=== PATIENT | female | born 1990 | race African-American/Black ===

== ENCOUNTER → 2025-01-06 | Outpatient (CLI) | payer OTHER ==
[~2025-01-06] MED LIST: OXYC1CAP2 PO
[2025-01-06 18:18] LABS: BASO # 0.1 10^3/uL (0.0-0.2); BASO % 0.6 % (0.0-1.0); EOS # 0.3 10^3/uL (0.0-0.5); EOS % 2.5 % (0.0-3.0); LYMPH # 2.6 10^3/uL (1.5-5.0); LYMPH % 24.3 % (24.0-44.0); MONO # 0.7 10^3/uL (0.0-0.8); MONO % 6.5 % (2.0-8.0); NEUTROPHILS # 6.9 10^3/uL (1.5-8.5); NEUTROPHILS % 65.9 % (36.0-66.0); PLATELET COUNT, AUTOMATED 410 10^3/uL (150-450)
[2025-01-06 18:21] LABS: CALCIUM LEVEL 9.1 MG/DL (8.5-10.1); CARBON DIOXIDE LEVEL 27 MMOL/L (20-31); CHLORIDE LEVEL 107 MMOL/L (98-107); CREATININE FOR GFR 0.97 MG/DL (0.55-1.30); GLOMERULAR FILTRATION RATE 79.6 (>60); HCG, SERUM QUALITATIVE NEGATIVE (NEGATIVE); POTASSIUM SERUM 4.6 MMOL/L (3.5-5.1); SODIUM LEVEL 145 MMOL/L (136-145)
== END ==
LOC: M PLALAB 14:52
PROVIDERS: ATTEND Surgery
DX: N61.1 Abscess of the breast and nipple (principal)

== ENCOUNTER 2025-01-08 09:01 | Day surgery (SDC) | payer OTHER ==
[~2025-01-08] VITALS: Ht 157.5 cm; Wt 84.8 kg
[2025-01-08] MEDS: LR 1,000 ML IV SCH (09:50)
[2025-01-08] MEDS ORDERED: ONDANSETRON 4MG 2ML VIAL As Ordered ONE (10:29)
[2025-01-08] MEDS ORDERED: LIDOCAINE 2% 100 MG/5 ML SDV (FOR ANES.) As Ordered ONE (10:29)
[2025-01-08] MEDS ORDERED: dexAMETHasone 4 MG/ML 1 ML VIAL As Ordered ONE (10:29)
[2025-01-08] MEDS ORDERED: MIDAZOLAM INJ 2 MG/2 ML VIAL As Ordered ONE (10:32)
[2025-01-08] MEDS: ceFAZolin SOD 2 GM IV ONCE IV ONE (11:53)
[2025-01-08] MEDS ORDERED: ACETAMINOPHEN 1000MG/100ML IV BAG As Ordered ONE (11:59)
[2025-01-08] MEDS ORDERED: GLYCOPYRROLATE INJ 0.2 MG/ML 2 ML VIAL As Ordered ONE (12:21)
[2025-01-08] MEDS ORDERED: OXYC1CAP2 PO (13:15)
[2025-01-08] MEDS: HYDROMORPHONE HCL 0.5 MG/0.5 ML SYRINGE IV PRN (13:36)
[2025-01-08] MEDS: traMADol 50 MG TAB PO ONE (14:00)
[2025-01-08 14:40] VITALS: BP 167/98; TEMP 97.7; O2SAT 100
== END 2025-01-08 15:28 | disposition home or self-care (01) ==
LOC: M SDC 09:01
PROVIDERS: ATTEND Surgery
DX: N61.1 Abscess of the breast and nipple (principal); Z88.0 Allergy status to penicillin
CPT/HCPCS: 10061; 87070; 87075; 87205; 88305; J0131; J0690; J1100; J1171; J1596; J2250; J2405; J3010

== ENCOUNTER → 2025-01-26 | Outpatient (CLI) | payer OTHER ==
[2025-01-26 18:36] LABS: PLATELET COUNT, AUTOMATED 450 10^3/uL (150-450)
[2025-01-26 19:12] LABS: HCG, SERUM QUALITATIVE NEGATIVE (NEGATIVE)
== END ==
LOC: M PLALAB 12:38
PROVIDERS: ATTEND Surgery
DX: Z01.812 Encounter for preprocedural laboratory examination (principal)

== ENCOUNTER 2025-01-29 11:41 | Day surgery (SDC) | payer OTHER ==
[~2025-01-29] VITALS: Ht 157.5 cm; Wt 83.6 kg
[2025-01-29] MEDS: LR 1,000 ML IV SCH (12:25)
[2025-01-29] MEDS ORDERED: LIDOCAINE 2% 100 MG/5 ML SDV (FOR ANES.) As Ordered ONE (12:58)
[2025-01-29] MEDS ORDERED: dexAMETHasone 4 MG/ML 1 ML VIAL As Ordered ONE (12:58)
[2025-01-29] MEDS ORDERED: ONDANSETRON 4MG 2ML VIAL As Ordered ONE (12:58)
[2025-01-29] MEDS ORDERED: MIDAZOLAM INJ 2 MG/2 ML VIAL As Ordered ONE (12:58)
[2025-01-29] MEDS: ceFAZolin SOD 2 GM IV ONCE IV ONE (14:40)
[2025-01-29] MEDS ORDERED: KETOROLAC 30 MG/ML 1 ML VIAL As Ordered ONE (15:01)
[2025-01-29] MEDS ORDERED: ACETAMINOPHEN 1000MG/100ML IV BAG As Ordered ONE (15:05)
[2025-01-29] MEDS ORDERED: GLYCOPYRROLATE INJ 0.2 MG/ML 2 ML VIAL As Ordered ONE (15:10)
[2025-01-29] MEDS: HYDROMORPHONE HCL 0.5 MG/0.5 ML SYRINGE IV PRN (15:53)
[2025-01-29] MEDS: ONDANSETRON 4MG 2ML VIAL IV PRN (15:53)
[2025-01-29 17:35] VITALS: BP 145/86; TEMP 97.7; O2SAT 100
== END 2025-01-29 17:41 | disposition home or self-care (01) ==
LOC: M SDC 11:41
PROVIDERS: ATTEND Surgery
DX: T81.31XA Disruption of external operation (surgical) wound, not elsewhere classified, initial encounter (principal); T81.41XA Infection following a procedure, superficial incisional surgical site, initial encounter; N61.1 Abscess of the breast and nipple; Y83.8 Other surgical procedures as the cause of abnormal reaction of the patient, or of later complication, without mention of misadventure at the time of the procedure; Z88.0 Allergy status to penicillin
CPT/HCPCS: 10180; 81025; J0131; J0665; J0690; J1100; J1171; J1596; J1885; J2250; J2405; J3010